=== PATIENT | female | born 1965 | race Caucasian/White ===

== ENCOUNTER 2019-01-08 15:17 | Emergency (ER) | payer OTHER ==
[~2019-01-08] VITALS: Ht 165.1 cm; Wt 63.5 kg
[~2019-01-08 15:17] MED LIST: ASCO1CAP2 PO; BIOT10TA PO; CALC1CAP8 PO; MAGN400T36 PO; vitamin b PO
--- NOTE | 2019-01-08 15:29 | NUR ---
ekg done in triage.
[2019-01-08] MEDS ORDERED: ASPIRIN 81 MG TABLET CHEW PO ONE (15:30)
[2019-01-08] MEDS ORDERED: SODIUM CHLORIDE FLUSH 10ML SYR IVF ONE (15:30)
--- NOTE | 2019-01-08 15:43 | NUR ---
IN TO ASSESS PT, RADIOLOGY BEDSIDE. NO ACUTE DISTRESS NOTED.
[2019-01-08] MEDS ORDERED: ASPIRIN 81 MG TABLET CHEW ONE (15:45)
[2019-01-08 15:46] LABS: BASOPHILS # (AUTO) 0.07 x10^3/uL (0-0.1); BASOPHILS % (AUTO) 1 % (0-1); EOSINOPHILS # (AUTO) 0.21 x10^3/uL (0-0.4); EOSINOPHILS % (AUTO) 3 % (1-7); LYMPHOCYTES # (AUTO) 4.11 x10^3/uL (1-3.4); LYMPHOCYTES % (AUTO) 48 % (22-44); MD NO; MEAN CORPUSCULAR HEMOGLOBIN 29.7 pg (27.0-34.8); MEAN CORPUSCULAR HGB CONC 33.6 g/dL (32.4-35.8); MEAN CORPUSCULAR VOLUME 88.5 fL (80-100); MEAN PLATELET VOLUME 7.8 fL (7.4-10.4); MONOCYTES % (AUTO) 5 % (2-9); NEUTROPHILS # (AUTO) 3.69 x10^3/uL (1.8-6.8); NEUTROPHILS % (AUTO) 44 % (42-75); PLATELET COUNT 293 x10^3/uL (130-400); RED BLOOD COUNT 5.35 x10^6/uL (3.82-5.3); RED CELL DISTRIBUTION WIDTH 13.1 % (9.6-15.2)
[2019-01-08 15:55] LABS: ALBUMIN 3.6 g/dL (3.4-5.0); ANION GAP 6 mmol/L (5-15); CALCIUM 9.5 mg/dL (8.5-10.1); CHLORIDE 108 mmol/L (98-107)
--- NOTE | 2019-01-08 15:56 | NUR ---
53 Y/O FEMALE PRESENTS TO ED WITH C/O CP. PER PT "YESTERDAY MORNING AT 0400 I HAD SOME CP THAT WOKE ME UP OUT OF A SLEEP. I HAD IT THROUGH THE MID MORNING TIL NOON TIME. TODAY I TOLD MY BOSS ABOUT IT. I WENT TO MY CUBICLE, MY BOSS SAID I LOOKED LIKE I WAS IN PAIN. SHE SAID FOR ME TO GO TO . I WENT TO [facility] AND THEY SENT ME HERE." PT PLACED ON CONT PULSE OX,NIBP,[facility]. NO C/O N/V/D, TRAUMA, SYNCOPE, CP, SOB.
[2019-01-08 16:01] LABS: ALANINE AMINOTRANSFERASE 28 U/L (12-78); ALKALINE PHOSPHATASE 84 U/L (45-117); BILIRUBIN,TOTAL 0.2 mg/dL (0.2-1.0); CREATININE 0.95 mg/dL (0.55-1.02); TOTAL PROTEIN 7.3 g/dL (6.4-8.2); TROPONIN I < 0.015 ng/mL (0.000-0.045)
[2019-01-08 16:09] VITALS: BP 105/50
--- NOTE | 2019-01-08 16:59 | NUR ---
Patient/Caregiver given discharge instructions and they have confirmed that they understand the instructions. Patient ambulatory with steady gait. pt left with all personal belongings.
== END 2019-01-08 17:01 | disposition home or self-care (01) ==
LOC: ED 16:42
DX: R51 Headache (principal); R07.89 Other chest pain; Z90.710 Acquired absence of both cervix and uterus; Z88.6 Allergy status to analgesic agent; Z87.891 Personal history of nicotine dependence
CPT/HCPCS: 36415; 71045; 80053; 84484; 85025; 93005; 99284

== ENCOUNTER 2020-02-07 07:53 | Emergency (ER) | payer OTHER ==
[~2020-02-07] VITALS: Ht 165.1 cm; Wt 66.9 kg
--- NOTE | 2020-02-07 08:22 | NUR ---
PT RESTING [facility] AT [facility]
[2020-02-07] MEDS ORDERED: MORPHINE SULFATE 4 MG/ML, 1ML ONE (08:48)
[2020-02-07] MEDS ORDERED: MORPHINE SULFATE 4 MG/ML, 1ML IVPush PRN (09:00)
[2020-02-07] MEDS ORDERED: SODIUM CHLORIDE 0.9% 1,000ML IVBOLUS ONE ×2 (09:00→11:00)
[2020-02-07] MEDS ORDERED: ONDANSETRON 2MG/ML, 2ML IVPush ONE (09:00)
[2020-02-07] MEDS ORDERED: SODIUM CHLORIDE FLUSH 10ML SYR IVF ONE (09:00)
[2020-02-07] MEDS ORDERED: ONDANSETRON 2MG/ML, 2ML ONE (09:35)
[2020-02-07 09:43] LABS: BASOPHILS # (AUTO) 0.05 x10^3/uL (0-0.1); BASOPHILS % (AUTO) 0 % (0-1); EOSINOPHILS # (AUTO) 0.05 x10^3/uL (0-0.4); EOSINOPHILS % (AUTO) 0 % (1-7); LYMPHOCYTES # (AUTO) 1.67 x10^3/uL (1-3.4); LYMPHOCYTES % (AUTO) 12 % (22-44); MD NO; MEAN CORPUSCULAR HGB CONC 33.8 g/dL (32.4-35.8); MEAN CORPUSCULAR VOLUME 88.7 fL (80-100); MEAN PLATELET VOLUME 7.7 fL (7.4-10.4); MONOCYTES # (AUTO) 0.66 x10^3/uL (0.2-0.8); MONOCYTES % (AUTO) 5 % (2-9); NEUTROPHILS # (AUTO) 11.27 x10^3/uL (1.8-6.8); NEUTROPHILS % (AUTO) 82 % (42-75); PLATELET COUNT 272 x10^3/uL (130-400); RED BLOOD COUNT 5.51 x10^6/uL (3.82-5.3); RED CELL DISTRIBUTION WIDTH 13.3 % (9.6-15.2)
--- NOTE | 2020-02-07 09:44 | NUR ---
MEDS GIVEN PER ORDERS PT RESTING NADN
[2020-02-07 09:49] LABS: ALANINE AMINOTRANSFERASE 298 U/L (12-78); ALBUMIN 3.5 g/dL (3.4-5.0); ANION GAP 9 mmol/L (5-15); CALCIUM 9.5 mg/dL (8.5-10.1); CHLORIDE 107 mmol/L (98-107); CREATININE 0.87 mg/dL (0.55-1.02)
[2020-02-07 09:51] LABS: ALKALINE PHOSPHATASE 122 U/L (45-117); BILIRUBIN,TOTAL 0.5 mg/dL (0.2-1.0); TOTAL PROTEIN 8.1 g/dL (6.4-8.2)
[2020-02-07] MEDS ORDERED: OMNIPAQUE 350 MG/ML, 100ML BOTTLE ONE (10:23)
[2020-02-07 10:50] LABS: MICROSCOPIC AUTO
[2020-02-07] MEDS ORDERED: CEFOTETAN PMX 1GM/50ML 50 ML IV ONE (11:00)
[2020-02-07] MEDS ORDERED: METRONIDAZOLE PMX 500MG/100ML 100 ML IV ONE (11:00)
--- NOTE | 2020-02-07 11:19 | NUR ---
TASK RN: CLARIFICATION OF ADDITIONAL 2000ML NS BOLUS WITH DR WATKINS. PT TO RECEIVE AN ADDITIONAL 1000 MLS FOR A TOTAL OF 2000MLS PER [facility]PS[facility] PROT[facility]OL.
[2020-02-07] MEDS ORDERED: CEFOTETAN PMX 1GM/50ML 50 ML ONE (11:22)
[2020-02-07] MEDS ORDERED: METRONIDAZOLE PMX 500MG/100ML 100 ML ONE (11:59)
--- NOTE | 2020-02-07 12:10 | NUR ---
TASK RN: CEFOTETAN INFUSED WITHOUT S/S OF ADVERSE REACTION. NS INFUSING WITH REDNESS/SWELLING. NO NEEDS EXPRESSED AT THIS TIME.
[2020-02-07 13:45] VITALS: BP 104/68
== END 2020-02-07 13:47 | disposition home or self-care (01) ==
LOC: ED 09:44
DX: K57.92 Diverticulitis of intestine, part unspecified, without perforation or abscess without bleeding (principal); Z90.710 Acquired absence of both cervix and uterus
CPT/HCPCS: 36415; 74177; 80053; 81001; 83605; 85025; 87040; 87077; 87086; 87186; 96365; 96367; 96375; 99285; J2270; J2405; J3490; J7030; Q9967